=== PATIENT | female | born 1985 | race Two or more races ===

== ENCOUNTER 2018-01-13 19:53 | Emergency (ER) | payer MEDICAID ==
[~2018-01-13] VITALS: Ht 167.6 cm; Wt 81.6 kg
[2018-01-13 20:15] VITALS: BP 130/59
[2018-01-13] MEDS: Methocarbamol 750mg tab ORAL ONE ×2 (20:35→20:45)
[2018-01-13] MEDS ORDERED: IBUPROFEN600 MG ORAL (20:36)
[2018-01-13] MEDS ORDERED: ROBAXIN-750750 MG PO (20:36)
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
[2018-01-13 21:24] VITALS: BP 130/59
== END 2018-01-13 21:45 | disposition home or self-care (01) ==
LOC: EMR 20:49
DX: M54.5 Low back pain (principal); V49.49XA Driver injured in collision with other motor vehicles in traffic accident, initial encounter; Y93.89 Activity, other specified; J45.909 Unspecified asthma, uncomplicated
CPT/HCPCS: 81025; 99284